=== PATIENT | male | born 1990 | race Caucasian/White ===

== ENCOUNTER 2017-05-25 11:11 | Emergency (ER) | payer OTHER ==
[~2017-05-25] VITALS: Ht 185.4 cm; Wt 73.6 kg
[2017-05-25] MEDS ORDERED: KETOROLAC 30 MG/1 ML IVPush ONE (12:00)
[2017-05-25] MEDS ORDERED: SODIUM CHLORIDE FLUSH 10ML SYR IVF ONE (12:00)
[2017-05-25] MEDS ORDERED: ASPIRIN 81 MG TABLET CHEW PO ONE (12:00)
[2017-05-25] MEDS ORDERED: KETOROLAC 30 MG/1 ML ONE (12:03)
[2017-05-25] MEDS ORDERED: ASPIRIN 81 MG TABLET CHEW ONE (12:03)
[2017-05-25 12:30] LABS: HEMATOCRIT 50.9 % (39.2-51.8); HEMOGLOBIN 17.5 g/dL (13.7-18.0); WHITE BLOOD COUNT 8.9 x10^3/uL (3.4-10)
[2017-05-25 12:40] LABS: BLOOD UREA NITROGEN 15 mg/dL (7-18)
[2017-05-25] MEDS ORDERED: OMNIPAQUE 350 MG/ML, 100ML BOTTLE ONE (13:15)
[2017-05-25 14:17] VITALS: BP 111/64
== END 2017-05-25 14:21 | disposition home or self-care (01) ==
LOC: ED 13:42
DX: R09.1 Pleurisy (principal)
CPT/HCPCS: 36415; 71020; 71275; 80048; 82040; 84484; 85025; 85610; 85730; 93005; 96374; 99285; J1885; Q9967